=== PATIENT | female | born 1985 | race Caucasian/White ===

== ENCOUNTER 2016-07-17 19:20 | Emergency (ER) | payer OTHER ==
[2016-07-17] MEDS ORDERED: ONDANSETRON 4 MG/2ML 2 ML VIAL ONE (20:54)
[2016-07-17] MEDS ORDERED: HYDROMORPHONE HCL 1 MG/ML SYRINGE ONE (20:55)
[2016-07-17] MEDS ORDERED: KETOROLAC TROMETHAMINE 30 MG/ML 1 ML VIAL ONE (20:55)
[2016-07-17 21:03] LABS: HCG,QUALITATIVE URINE NEGATIVE
[2016-07-17 21:09] LABS: SPECIFIC GRAVITY 1.025 (1.001-1.030); URINE BILIRUBIN NEGATIVE (NEGATIVE); URINE BLOOD NEGATIVE (NEGATIVE); URINE GLUCOSE (UA) NEGATIVE (NEGATIVE); URINE LEUKOCYTE ESTERASE NEGATIVE (NEGATIVE); URINE NITRITE NEGATIVE (NEGATIVE); URINE PROTEIN NEGATIVE (NEGATIVE); URINE UROBILINOGEN NORMAL (0-1 mg/dl)
[2016-07-17 21:18] LABS: URINE APPEARANCE CLEAR; URINE COLOR DARK YELLOW
[2016-07-17 21:47] LABS: ABSOLUTE NEUTROPHIL COUNT 4.3 K/mm3 (1.8-7.7); BASO # 0.1 K/mm3 (0.0-0.2); BASO % 0.6 % (0.2-1.0); EOS # 0.1 (0.0-0.5); EOS % 1.2 % (0.9-2.9); HEMATOCRIT 42.2 % (37.0-47.0); HEMOGLOBIN 14.1 gm/l (12.0-16.0); IMM NEUT% 0.2 % (0-1); LYMPH # 4.5 (1.0-4.8); LYMPH % 46.8 % (15-45); MEAN CELL VOLUME 88.5 fl (81.0-99.0); MEAN CORPUSCULAR HEMOGLOBIN 29.6 pg (27.0-31.0); MEAN CORPUSCULAR HGB CONC 33.4 g/dl (33.0-37.0); MEAN PLATELET VOLUME 10.2 fl (7.4-10.4); MONO # 0.6 (0.0-0.8); NEUT % 45.2 % (43-75); PLATELET COUNT 260 K/mm3 (130-400); RED CELL DISTRIBUTION WIDTH 12.4 % (11.5-14.5)
[2016-07-17 21:52] LABS: ALB/GLOB RATIO 1.2 (>1.0); ALBUMIN 3.8 gm/dL (3.5-5.7); CALCIUM 9.3 mg/dL (8.6-10.3)
[2016-07-17] MEDS ORDERED: HYDROMORPHONE HCL 0.5 MG/0.5 ML SYRINGE ONE (22:49)
--- NOTE | 2016-07-18 08:00 | CT ---
Exam: CT abdomen and pelvis without contrast COMPARISON: 06/28/2013 and pelvic ultrasound 09/24/2014 INDICATION: Right lower quadrant pain for 2 days. TECHNIQUE: CT examination of the abdomen and pelvis was obtained without contrast. FINDINGS: There is a normal bowel gas pattern without evidence of obstruction. The appendix is normal. Moderate amount of stool seen within the proximal colon although the rectosigmoid colon is decompressed. The uterus is present and within normal limits. There is no adnexal mass. Urinary bladder unremarkable. Medullary pyramids are slightly hyperdense. There is a 2 mm nonobstructing calculus in the upper pole of the left kidney and 2 punctate, less than 2 mm, nonobstructing calculi are present within the lower pole the right kidney. There is no hydronephrosis or perinephric stranding. Gallbladder surgically absent. The liver, spleen, pancreas and adrenal glands are unremarkable this noncontrast exam. Lung bases are clear. Breast implants are noted but incompletely visualized. Tiny fat-containing periumbilical hernia is noted. There is mild facet arthropathy within the lower lumbar spine. No worrisome lytic or blastic osseous lesion is identified. Small subchondral lucent lesion with sclerotic rim is noted within the left iliac bone and is stable since 2013, compatible with benign etiology. IMPRESSION: 1. No acute findings identified to explain right lower quadrant pain. 2. 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 Preliminary report transmitted to the emergency department from [facility] at 2227 hours 07/17/2016.
== END 2016-07-17 23:08 | disposition home or self-care (01) ==
LOC: ED 19:20
DX: N20.0 Calculus of kidney (principal); E03.9 Hypothyroidism, unspecified; Z87.442 Personal history of urinary calculi; F17.210 Nicotine dependence, cigarettes, uncomplicated
CPT/HCPCS: 83690; 81025; 85025; 80053; 81003; 74176; 96375 ×2; 99283 ×2; 96376; 96374; J1170 ×2; J1885; J2405